=== PATIENT | male | born 2000 | race Caucasian/White ===

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

== ENCOUNTER 2021-03-18 19:12 | Emergency (ER) | payer BC, OTHER ==
[~2021-03-18] VITALS: Ht 177.8 cm; Wt 75.3 kg
[2021-03-18] MEDS ORDERED: AMOCLA875 PO (19:30)
== END 2021-03-18 19:39 | disposition home or self-care (01) ==
LOC: ER 19:12
DX: S61.250A Open bite of right index finger without damage to nail, initial encounter (principal); W55.01XA Bitten by cat, initial encounter
CPT/HCPCS: A9270